=== PATIENT | male | born 1945 ===

== ENCOUNTER → 2019-05-13 | Outpatient (CLI) | payer OTHER ==
[~2019-05-13] MED LIST: ACETAMINOP650 MG/201 FT; ALLO100T PO; AMLO10TA8 PO; ATORVASTATIN CA80 MG PO; CETI10TA16 PO; COLC0.6T34 PO; DICL100G18 TP; FLUT16SP NS; KETO10DR6 EACHEYE
--- NOTE | 2019-05-13 12:48 | PAIN ---
DATE OF SERVICE: 05/13/2019 INITIAL CONSULTATION FOR PAIN CLINIC CHIEF COMPLAINT: Low back and bilateral lower extremity pain, right greater than left. HISTORY OF PRESENT ILLNESS: This is a 74-year-old male who presents with history of pain for about 5 years, increasing gradually over time, worse over the past 6-7 months in the low back and bilateral lower extremities, especially on the right side with pain radiating across the low back and the posterior gluteus, lateral thigh, anterior thigh, medial thigh on the right side and left him more especially on the right with some fatigability with walking, standing, but no loss of motor function. The patient reports he worked for a [employer] company as well as a [employer] company and most of his life, he has been on his feet and most of his working days and feel that this is gradually increase the pain and makes things worse over time, but no specific injury or action he is aware of. The patient reports it does not awaken him from sleep generally. It does not affect his bowel or bladder control, but does affect his ability to walk, especially with his right leg as well as some significant fatigability, but no loss of motor function. The patient has had physical therapy, counseling, chiropractic treatment, [facility], which have helped, but especially the traction, but not decreased the pain, custodial. The patient describes the pain as constant, sharp, shooting, radiating into the legs with numbness and aching across the low back. The patient describes the disability rating from 0-10, 10 being the worst, is a 9 with family home responsibilities, recreation, sexual behavior, self-care, life support activities, 10 with occupational activities, 8 with social activity. The patient did have an MRI scan of the lumbar spine showing some significant degenerative disk disease, especially at the L4-L5 level, but also with facet arthropathy from L1 through L5-S1. Slight anterior subluxation at L4 and L5 as well, now in AP diameter. There is also small bulging of the annulus symmetrical at L3-L4, L2-L3, and L4-L5. The patient reports no loss of motor function, again with significant fatigability. PAST MEDICAL HISTORY: Significant for hearing loss, borderline diabetes, hypertension, dizziness, arthritis, kidney disease. PAST SURGICAL HISTORY: Include bilateral cataract extraction and a knee surgery on the left. CURRENT MEDICATIONS: Include allopurinol, amlodipine, eyedrops, atorvastatin, fluticasone, cetirizine, ketotifen eyedrops, and phenylephrine suppositories. ALLERGIES: THE PATIENT IS ALLERGIC TO LISINOPRIL. FAMILY HISTORY: Significant for no major medical conditions that he lists. SOCIAL HISTORY: The patient reports he is currently retired. Does not drink alcohol, does not smoke, does not use any illegal, illicit, or recreational drugs. He is , lives with his spouse, lives locally in [place], [place]. REVIEW OF SYSTEMS: The patient's review of systems is positive for those items mentioned in history of present illness. All systems reviewed and otherwise negative. It is complete, full, and well documented on the patient's chart. PHYSICAL EXAMINATION: VITAL SIGNS: The patient's blood pressure is 151/96, pulse 66, respirations 18, temperature is 98.9, height is 5 feet 6 inches, weight is 167 pounds. GENERAL: The patient is awake, alert, oriented, appropriate, very pleasant demeanor. HEENT: Head shows normocephalic, atraumatic. Extraocular movements are intact and symmetrical. Oral cavity: Mucous membranes moist and pink. Dentition is intact. NECK: Shows anterior throat supple without palpable lymphadenopathy noted. Swallow reflex symmetrical. CHEST: Shows normal on inspection. Breath sounds clear to auscultation bilaterally. HEART: Shows S1, S2 clear. No murmurs auscultated. ABDOMEN: Soft, nontender, nondistended. No palpable organomegaly is noted. No rebound or guarding demonstrated. BACK: Shows spine grossly symmetrical. The patient shows good rotational motion of lumbar spine. Lumbar paraspinous muscle shows symmetrical on inspection, on palpation shows some moderate tenderness diffusely, but only diffusely without significant radiation. The patient spinous processes and sacrum are nontender with palpation of the sacroiliac regions. EXTREMITIES: The patient's lower extremities show deep tendon reflexes 2+ in the patellar, 1+ tendo-calcaneus tendons. Motor exam is strong with 5/5 dorsiflexion, extension, quadriceps, and hamstring flexion symmetrical. Peripheral pulses are 1+ posterior tibia. No peripheral edema is noted. Bilateral lower extremities are warm and dry to touch, equal in color and appearance. The patient's straight leg raise noted to be negative for reproduction of radicular symptoms bilaterally. Gaenslen's and José Miguel's maneuvers are negative bilaterally as well. The patient is able to stand, stand on his toes without significant difficulty or loss of balance, walks with a normal-appearing gait for short distance in the office today, not using any assistive devices. SKIN: The patient's skin shows warm and dry, good turgor. No edema. No sores, rashes, or bruising throughout. IMPRESSION: 1. This is a 74-year-old male with 5-year history of low back pain into the bilateral lower extremities, right greater than left in radicular fashion. 2. Lumbar MRI scan as noted. 3. Arthritis. 4. Kidney disease. 5. Hypertension. 6. Borderline diabetes. PLAN: Options were discussed with the patient including conservative medical management, physical therapy, interventional techniques. He would like to pursue interventional techniques as he has done mostly other modalities. We discussed a lumbar epidural steroid injection using description as well as anatomical models to describe the procedure. The patient would like to discuss this with his spouse who is at another appointment currently and return for lumbar epidural steroid injection when she is available. The patient will continue with stretching and strengthening exercises on his own and walking as tolerated daily with exercise. The patient also will return with his spouse. We will plan on lumbar epidural steroid injection as scheduled. SOPHIA HONG MD DR: SHAYNA/[facility] JOB#: [id number] / [id number]
== END | disposition home or self-care (01) ==
LOC: PNCL 09:26
PROVIDERS: ATTEND Anesthesiology
DX: M54.16 Radiculopathy, lumbar region (principal); M13.88 Other specified arthritis, other site; M12.88 Other specific arthropathies, not elsewhere classified, other specified site; R20.0 Anesthesia of skin; N28.9 Disorder of kidney and ureter, unspecified; I10 Essential (primary) hypertension; E11.9 Type 2 diabetes mellitus without complications; M51.36 Other intervertebral disc degeneration, lumbar region; Z88.8 Allergy status to other drugs, medicaments and biological substances
CPT/HCPCS: G0463

== ENCOUNTER → 2019-05-24 | Outpatient (CLI) | payer OTHER ==
[~2019-05-24] MED LIST changes: +IOHEXOL 180 MG/ML 10 ML VIAL. ONE; +methylPREDNISolone ACETATE 40 MG/ML VIAL. ONE; +methylPREDNISolone ACETATE 80 MG/ML VIAL. ONE
--- NOTE | 2019-05-24 13:06 | PAIN ---
DATE OF SERVICE: 05/24/2019 PROGRESS NOTE FOR PAIN CLINIC DIAGNOSES: Lumbar radiculopathy with lumbar degenerative disk disease. HISTORY OF PRESENT ILLNESS: The patient is a 74-year-old male who returns for followup status post initial evaluation. The patient returned after discussing things with his spouse, would like to proceed with a lumbar epidural steroid injection today. The patient reports still significant pain in the low back and right lower extremity, worse with bending over. The tingling pain is described as aching, sharp, constant in the low back into the right leg in the lateral anterior thigh on the right side as well. The patient reports it is worse with walking, standing, changing positions, better with sitting or lying down, does not awaken him from sleep at night. We did try Medrol Dosepak, which he reported helped to some extent, it was only minimal. The patient reports the pain is 8 on a scale of 10 at its worst over the past week 6-7 on average and a 5 at its least. The patient reports no new motor or sensory deficits, no new bowel or bladder incontinence or other complaints. PHYSICAL EXAMINATION: VITAL SIGNS: The patient's blood pressure is 161/80, pulse 79, respirations 16, temperature 98.5 degrees Fahrenheit, height is 5 feet 6 inches and weight is 169 pounds. GENERAL: The patient is awake, alert, oriented, appropriate, very pleasant demeanor. HEENT: Head shows normocephalic, atraumatic. Extraocular movements are intact and symmetrical. Oral cavity: Mucous membranes moist and pink. . Dentition is intact. NECK: Shows anterior throat supple without palpable lymphadenopathy noted. Swallow reflex symmetrical. CHEST: Shows normal on inspection. Breath sounds clear to auscultation bilaterally. HEART: Shows S1, S2 clear. No murmurs auscultated. ABDOMEN: Soft, nontender, nondistended. No palpable organomegaly is noted. No rebound or guarding demonstrated. BACK: Shows spine grossly in the midline. Normal appearing thoracic kyphosis and lumbar lordotic curvature. Lumbar paraspinous muscle shows symmetrical on inspection, on palpation shows some moderate tenderness diffusely bilaterally going diffusely without radiation. The patient has good rotational motion of lumbar spine, both laterally as well as extension and flexion without significant difficulty. EXTREMITIES: Lower extremities show deep tendon reflexes at 2+ in the patellar, 1+ tendo-calcaneus tendons. Motor exam is strong with 5/5 dorsiflexion, extension, quadriceps and hamstring flexion and symmetrical. Peripheral pulses are 1+ posterior tibia. No peripheral edema is noted. PLAN: Options were discussed with the patient. The patient's old chart was reviewed as his current medication regimen updated. Current review of systems updated today as well and we will proceed with a lumbar epidural steroid injection today with fluoroscopic guidance. Risks were again discussed including, but not limited to bleeding, infection, possibility of epidural hematoma, subsequent neurological compromise, dural puncture, headaches, spinal cord and/or nerve damage, side effects of steroid medication and poor results regarding pain control. The patient understands and wished to proceed. The patient will return to clinic in approximately 2 weeks for followup. He was counseled as to return appointment, activity level and side effects to be aware of. DIAGNOSIS: Lumbar radiculopathy with lumbar degenerative disk disease. PROCEDURE: Lumbar epidural steroid injection, translaminar approach L4-L5 level using C-arm fluoroscopic guidance under sterile prep and drape using local anesthetic. MEDICATION INJECTED: The patient received a total of 120 mg Depo-Medrol plus 10 mL of preservative-free normal saline and 2 mL of contrast. CONDITION AT DISCHARGE: Stable. The patient tolerated procedure well, had no complications. SOPHIA HONG MD DR: SHAYNA/[facility] JOB#: [id number] / [id number]
== END ==
LOC: PNCL 08:00
PROVIDERS: ATTEND Anesthesiology
DX: M51.16 Intervertebral disc disorders with radiculopathy, lumbar region (principal)
CPT/HCPCS: 62323; J1030; J1040; Q9965

== ENCOUNTER → 2019-06-07 | Outpatient (CLI) | payer OTHER ==
[~2019-06-07] MED LIST changes: -IOHEXOL 180 MG/ML 10 ML VIAL. ONE; -methylPREDNISolone ACETATE 40 MG/ML VIAL. ONE; -methylPREDNISolone ACETATE 80 MG/ML VIAL. ONE
--- NOTE | 2019-06-07 19:58 | PAIN ---
DATE OF SERVICE: 06/07/2019 PROGRESS NOTE FOR PAIN CLINIC DIAGNOSIS: Lumbar radiculopathy with lumbar degenerative disk disease. HISTORY OF PRESENT ILLNESS: The patient is a 74-year-old male who returns for followup status post lumbar epidural steroid injection x 1. The patient reports about 40% improvement with the last injection, reports still some pain in the low back, but the right leg is doing much better. The patient reports no new motor or sensory deficits, no new bowel or bladder incontinence. He has been increasing his distance walking, doing work activities, home activities as well. Still having some difficulty with certain chairs that do not have a lumbar support, but movement is better. He is better with flexing, bending and stooping, twisting is much more comfortable. The patient reports the pain is still there, but it is a sharp pain it is tingling, stabbing, on and off in intensity, does not generally awaken him from sleep at night. Reports no new motor or sensory deficits, no bowel or bladder incontinence. The pain is 7 on a scale of 10 at its worst in the past week, 6 on average, 5 at its least and is 6 today. The patient reports no new motor or sensory deficits or other changes. PHYSICAL EXAMINATION: VITAL SIGNS: The patient's blood pressure 143/90, pulse 68, respirations 16, temperature 98.5 degrees Fahrenheit, height is 5 feet 6 inches and weight is 167 pounds. GENERAL: The patient is awake, alert, oriented, appropriate, very pleasant demeanor. HEENT: Shows normocephalic, atraumatic. Extraocular movements are intact and symmetrical. The patient is wearing eyeglasses. Oral cavity: Mucous membranes moist and pink. Dentition is intact. NECK: Shows anterior throat supple without palpable lymphadenopathy noted. Swallow reflex symmetrical. CHEST: Shows normal on inspection. Breath sounds are clear bilaterally. HEART: Shows S1, S2 clear. No murmurs auscultated. ABDOMEN: Soft, nontender, nondistended. No palpable organomegaly is noted. No rebound or guarding demonstrated. BACK: Shows spine grossly in the midline. Normal appearing thoracic kyphosis and minor flattening of lumbar lordotic curvature. Lumbar paraspinous muscle shows symmetrical on inspection, with palpation shows some moderate tenderness diffusely bilaterally, diffusely without significant radiation. EXTREMITIES: The patient's lower extremities show deep tendon reflexes 2+ in the patellar, 1+ tendo-calcaneus tendons. Motor exam is strong with 5/5 dorsiflexion, extension, equal. Peripheral pulses are 1+ posterior tibial. No peripheral edema is noted. PLAN: Options were discussed with the patient. The patient's old chart was reviewed as his current medication regimen updated. Current review of systems updated today as well. We will hold on further injections at this time as the patient would like to give it more time and see how he does, if that return in a few weeks; however, as he is fearful that it make it worse. Also, his is not with him today and he would prefer that she is here prior to any procedures performed. The patient will continue with stretching and strengthening exercises, walking daily as tolerated. [facility] and will continue this as scheduled as well. The patient will follow up in approximately 2 weeks and we will reevaluate the patient's progress at that time. SOPHIA HONG MD DR: SHAYNA/[employer] JOB#: [id number] / [id number]
== END | disposition home or self-care (01) ==
LOC: PNCL 08:01
PROVIDERS: ATTEND Anesthesiology
DX: M51.16 Intervertebral disc disorders with radiculopathy, lumbar region (principal)
CPT/HCPCS: G0463

== ENCOUNTER → 2019-06-30 | Outpatient (CLI) | payer OTHER ==
[~2019-06-30] MED LIST changes: +IOHEXOL 180 MG/ML 10 ML VIAL. ONE; +methylPREDNISolone ACETATE 40 MG/ML VIAL. ONE; +methylPREDNISolone ACETATE 80 MG/ML VIAL. ONE
--- NOTE | 2019-06-30 09:41 | PN ---
DATE: 06/30/2019 PROGRESS NOTE FOR PAIN CLINIC DIAGNOSES: Lumbar radiculopathy with lumbar degenerative disk disease. HISTORY OF PRESENT ILLNESS: The patient is a 74-year-old male who returns for followup status post lumbar epidural steroid injection x 1 with very good results about 40% improvement overall. The patient reports the pain is still significant low back into the right lower extremity, worse in the posterior gluteus, posterolateral thigh, lateral anterior thigh, medial thigh as well. The patient reports he is increasing his activity with greater distance walking, doing household activities, home activities, work activities, more movement. He also had some acupuncture done, which he thought was helpful as well. The patient reports no new motor or sensory deficits, no new bowel or bladder incontinence. Describes the pain as stabbing, tight, shooting in the back, becoming more constant with activity, rates it as 5-6 on a scale of 10 at its worst over the past week, ____ today. The patient reports no new motor or sensory deficits, no new bowel or bladder incontinence or other complaints. PHYSICAL EXAMINATION: VITAL SIGNS: The patient's blood pressure is 149/78, pulse 71, respirations 16, temperature 98.1 degrees Fahrenheit, weight is 172 pounds. GENERAL: The patient is awake, alert, oriented, appropriate, very pleasant demeanor. HEENT: Head shows normocephalic, atraumatic. Extraocular movements are intact and symmetrical. Oral cavity: Mucous membranes moist and pink. Dentition is intact. NECK: Shows anterior throat supple without palpable lymphadenopathy noted. Swallow reflex symmetrical. CHEST: Shows normal on inspection. Breath sounds clear to auscultation bilaterally. HEART: Shows S1, S2 clear. No murmurs auscultated. ABDOMEN: Soft, nontender, nondistended. BACK: Shows spine grossly in the midline. Normal appearing thoracic kyphosis, some minor flattening of lumbar lordotic curvature. Lumbar paraspinous muscle shows symmetrical on inspection, on palpation shows some moderate tenderness diffusely, but only diffusely without significant radiation. EXTREMITIES: The patient's lower extremities showed deep tendon reflexes at 2+ in the patellar, 1+ tendo-calcaneus tendons. Motor exam is strong with 5/5 dorsiflexion, extension, quadriceps and hamstring flexion symmetrical. Peripheral pulses are 1+ posterior tibial. No peripheral edema is noted bilaterally. Options were discussed with the patient. The patient's old chart was reviewed as his current medication regimen updated. Current review of systems updated today as well. We will proceed with a second in the series of lumbar epidural steroid injection today with fluoroscopic guidance. Risks were again discussed including, but not limited to bleeding, infection, possibility of epidural hematoma, subsequent neurologic compromise, dural puncture, headaches, spinal cord and/or nerve damage, side effects of steroid medication and poor results regarding pain control. The patient understands and wished to proceed. The patient will return to clinic in approximately 2 weeks for followup. She was counseled on return appointment, activity level and side effects to be aware of. DIAGNOSIS: Lumbar radiculopathy with lumbar degenerative disk disease. PROCEDURE: Lumbar epidural steroid injection, translaminar approach L4-L5 level using C-arm fluoroscopic guidance under sterile prep and drape using local anesthetic. MEDICATION INJECTED: A total of 120 mg of Depo-Medrol plus 10 mL of preservative-free normal saline and 2 mL of contrast. CONDITION AT DISCHARGE: Stable. The patient tolerated procedure well, had no complications. SOPHIA HONG MD DR: SHAYNA/[employer] JOB#: [id number] / [id number]
== END ==
LOC: PNCL 08:15
PROVIDERS: ATTEND Anesthesiology
DX: M51.16 Intervertebral disc disorders with radiculopathy, lumbar region (principal)
CPT/HCPCS: 62323; J1030; J1040; Q9965

== ENCOUNTER → 2019-07-30 | Outpatient (CLI) | payer OTHER ==
--- NOTE | 2019-07-30 09:51 | PAIN ---
DATE OF SERVICE: 07/30/2019 PROGRESS NOTE FOR PAIN CLINIC DIAGNOSES: Lumbar radiculopathy with lumbar degenerative disk disease. HISTORY OF PRESENT ILLNESS: The patient is a 74-year-old male who returns for followup status post lumbar epidural steroid injections x 2. The patient reports about 60% improvement overall in the low back and right lower extremity. The patient has been increasing his activity with greater ease and comfort, has been doing greater distance walking, doing work activities around the house as well. He has been helping his daughter with some home repairs and some mattress and foundation sewer issues, which has been increasing the stress on his back and caused the pain to increase to some extent, but is overall doing much better. The patient reports no new motor or sensory deficits, no new bowel or bladder incontinence. He reports his mobility is much better, sleeping better at night as well as not awakening from sleep. The patient reports his pain is 8 on a scale of 10 at its worst over the past week, 7 on average, 5 at its least and is at 5 today. The patient reports no new motor or sensory deficits, no new bowel or bladder incontinence or other complaints. PHYSICAL EXAMINATION: VITAL SIGNS: The patient's blood pressure is 172/88, pulse 74, respirations are 16 and temperature is 98.6 degrees Fahrenheit. The patient's height is 5 feet 6 inches and weight is 169 pounds. GENERAL: The patient is awake, alert, oriented, appropriate, very pleasant demeanor. HEENT: Shows normocephalic, atraumatic. Extraocular movements are intact and symmetrical. Oral cavity: Mucous membranes are moist and pink. Dentition is intact. NECK: Shows anterior throat supple without palpable lymphadenopathy noted. Swallow reflex symmetrical. CHEST: Shows normal on inspection. Breath sounds are clear to auscultation bilaterally. HEART: Shows S1, S2 clear. No murmurs auscultated. ABDOMEN: Soft, nontender, nondistended. No palpable organomegaly is noted. No rebound or guarding demonstrated. BACK: Shows spine grossly in the midline. Normal appearing thoracic kyphosis and lumbar lordotic curvature. Lumbar paraspinous muscle shows symmetrical on inspection, with palpation shows some moderate tenderness diffusely bilaterally going diffusely without significant radiation. EXTREMITIES: The patient's lower extremities show deep tendon reflexes at 2+ in the patellar, 1+ tendo-calcaneus tendons. Motor exam is strong with 5/5 dorsiflexion, extension, quadriceps and hamstring flexion symmetrical. Peripheral pulses are 1+ in posterior tibia. No peripheral edema is noted. Options were discussed with the patient. The patient's old chart was reviewed as well as his current medication regimen updated. Current review of systems is updated today as well. We will proceed with third in the series of lumbar epidural steroid injection today with fluoroscopic guidance. Risks were again discussed including, but not limited to bleeding, infection, possibility of epidural hematoma, subsequent neurologic compromise, dural puncture, headaches, spinal cord and/or nerve damage, side effects of steroid medication and poor results regarding pain control. The patient understands and wished to proceed. The patient will return to clinic in approximately 2 weeks for followup. He was counseled on his return appointment, activity level and side effects to be aware of. DIAGNOSIS: Lumbar radiculopathy with lumbar degenerative disk disease. PROCEDURE: Lumbar epidural steroid injection, translaminar approach, L4-L5 level using C-arm fluoroscopic guidance under sterile prep and drape using local anesthetic. MEDICATIONS INJECTED: A total of 120 mg of Depo-Medrol plus 10 mL of preservative-free normal saline and 2 mL of contrast. CONDITION AT DISCHARGE: Stable. The patient tolerated the procedure well, had no complications. SOPHIA HONG MD DR: SHAYNA/[employer] JOB#: [id number] / [id number]
== END ==
LOC: PNCL 08:05
PROVIDERS: ATTEND Anesthesiology
DX: M51.16 Intervertebral disc disorders with radiculopathy, lumbar region (principal)
CPT/HCPCS: 62323; J1030; J1040; Q9965